=== PATIENT | female | born 1980 | race Caucasian/White ===

== ENCOUNTER → 2023-02-15 11:09 | Outpatient (CLI) | payer BC, SELFPAY ==
--- NOTE | ~2023-02-15 | MM_ITS ---
EXAMINATION: MM screening dalia BI w janie HISTORY: Screening mammogram TECHNIQUE: Craniocaudal and mediolateral oblique 3-D tomosynthesis images were obtained and synthetic 2-D images were generated. CAD analysis was submitted and interpreted. COMPARISON: No prior mammogram is available for comparison at this institution. BREAST PARENCHYMAL COMPOSITION:Dense: The breasts are extremely dense, which lowers the sensitivity o f mammography. FINDINGS: No suspicious mass, calcification, or architectural distortion are identified in either won ast to suggest malignancy. IMPRESSION: No mammographic evidence of malignancy. Recommend routine screening mammography in one year. BI-RADS Category 1: Negative Reviewed, dictated and finalized at location . [employer]
== END ==
DX: Z12.31 Encounter for screening mammogram for malignant neoplasm of breast (principal)
CPT/HCPCS: 77063; 77067

== ENCOUNTER 2024-04-26 13:29 | Outpatient (CLI) | payer BC, SELFPAY ==
--- NOTE | ~2024-04-26 | MM_ITS ---
EXAMINATION: MM scrn dalia implant BI w janie HISTORY: Screening mammogram TECHNIQUE: Craniocaudal and mediolateral oblique 3-D tomosynthesis images with implant displacement a nd synthetic 2-D images were generated. Craniocaudal and mediolateral oblique views of the breasts wi thout implant displacement were obtained using full field digital mammography. CAD analysis was submi tted and interpreted. COMPARISON: 02/15/2023 BREAST PARENCHYMAL COMPOSITION: Dense: The breasts are extremely dense, which lowers the sensitivity of mammography. FINDINGS: There is a mass in the upper lateral aspect of the left breast which may represent a skin l esion. Recommend repeat MLO implant displaced views with skin marker if appropriate. The right breast is stable without evidence for malignancy. IMPRESSION: 1. New left breast mass superiorly and laterally, possibly a skin lesion. 2. Recommend clinical correlation for skin lesion with repeat MLO implant displaced views with skin m arker if appropriate. BI-RADS Category 0: Incomplete: Needs additional imaging evaluation. Reviewed, dictated and finalized at location B. IMPRESSION: 1. New left breast mass superiorly and laterally, possibly a skin lesion. 2. Recommend clinical correlation for skin lesion with repeat MLO implant displ aced views with skin marker if appropriate. BI-RADS Category 0: Incomplete: Needs additional imaging evaluation.
== END 2024-04-26 13:30 | disposition home or self-care (01) ==
LOC: MICIMG 13:30
PROVIDERS: PCP Nurse Practitioner Family
DX: Z12.31 Encounter for screening mammogram for malignant neoplasm of breast (principal); R92.8 Other abnormal and inconclusive findings on diagnostic imaging of breast
CPT/HCPCS: 77063; 77067

== ENCOUNTER 2024-05-16 07:57 | Outpatient (CLI) | payer BC, SELFPAY ==
--- NOTE | ~2024-05-16 | MMUS_ITS ---
EXAMINATION: US breast LT limited, MM diag dalia implant LT w janie HISTORY: Follow-up left breast mass seen on prior screening mammogram TECHNIQUE: Additional 3-D tomosynthesis images of the left breast were performed and synthetic 2-D im ages were generated. CAD analysis was submitted and interpreted. High resolution Limited left breast ultrasound was performed. COMPARISON: Comparison to multiple prior studies sequentially, with oldest reviewed study dated 02/15. BREAST PARENCHYMAL COMPOSITION: Dense: The breasts are heterogeneously dense, which may obscure small masses FINDINGS: MAMMOGRAPHIC FINDINGS: There is a left subpectoral breast implant. There is a focal asymmetry superiorly in the left breast on MLO implant displaced view, posterior third. There are no suspicious calcifications or architectur al distortion. ULTRASOUND: Limited left breast ultrasound: At 1:00, 6 cm from the nipple there is a superficial oval hypoechoic mass with echogenic hilum, parallel orientation, no posterior features. And hilar enhancement, consis tent with intramammary lymph node measuring 1 cm. At 3:00, 6 cm from the nipple there is an oval para llel oriented circumscribed hypoechoic 7 mm mass without significant internal vascularity or posterio r features, likely benign. At 4:00, 7 cm from the nipple there is an oval circumscribed hypoechoic pa rallel oriented 9 mm mass without internal vascularity or significant posterior features, likely dea gn. IMPRESSION: 1. Probable benign left breast masses. 2. Recommend 6 month follow-up Limited left breast ultrasound BI-RADS category 3, probably benign findings. Reviewed, dictated and finalized at location A. IMPRESSION: 1. Probable benign left breast masses. 2. Recommend 6 month follow-up Limited left breast ultrasound BI-RADS category 3, probably benign findings.
== END 2024-05-16 07:58 | disposition home or self-care (01) ==
PROVIDERS: PCP Nurse Practitioner Family
DX: R92.8 Other abnormal and inconclusive findings on diagnostic imaging of breast (principal)
CPT/HCPCS: 76642; 77061; 77065; G0279

== ENCOUNTER 2024-11-15 09:47 | Outpatient (CLI) | payer OTHER, SELFPAY ==
--- NOTE | ~2024-11-15 | US_ITS ---
EXAMINATION: US breast LT limited INDICATION: 43-year old female; BI-RADS 3, short-term follow-up probably benign left breast masses. COMPARISON: 05/16/2024 TECHNIQUE: Targeted sonographic evaluation of the areas of probably benign findings was completed. FINDINGS: An intramammary lymph node with prominent fatty hilum at 1:00, 6 cm FN location in the LEFT breast redemonstrated is unchanged. A 0.6 x 0.2 x 0.7 cm parallel orientated Hypoechoic mass at 3:00, 6 cm FN location redemonstrated is unchanged. A 0.8 x 0.3 x 0.8 cm parallel oriented Hypoechoic mass at 4:00, 7 cm FN location redemonstrated is unchanged. IMPRESSION: Probably benign LEFT breast masses have demonstrated 6 months stability since initial evaluation on 05/16/2024. RECOMMENDATION: 6 month follow-up diagnostic BILATERAL mammogram and LEFT breast ultrasound. BI-RADS category 3, probably benign findings. Reviewed, dictated and finalized at location B. IMPRESSION: Probably benign LEFT breast masses have demonstrated 6 months stability since initial evaluation on 05/16/2024. RECOMMENDATION: 6 month follow-up diagnostic BILATERAL mammogram and LEFT breas t ultrasound. BI-RADS category 3, probably benign findings.
== END 2024-11-15 09:48 | disposition home or self-care (01) ==
LOC: MICIMG 09:48
PROVIDERS: PCP Nurse Practitioner Family; Visit Provider Nurse Practitioner Women's Health
DX: R92.8 Other abnormal and inconclusive findings on diagnostic imaging of breast (principal); R59.0 Localized enlarged lymph nodes; N63.25 Unspecified lump in the left breast, overlapping quadrants; N63.24 Unspecified lump in the left breast, lower inner quadrant
CPT/HCPCS: 76642